=== PATIENT | female | born 1995 | race Caucasian/White ===

== ENCOUNTER 2023-02-01 02:17 | Inpatient (IN) | payer SELFPAY ==
[~2023-02-01] VITALS: Ht 172.7 cm; Wt 88.6 kg
[2023-02-01] VITALS (20 sets, daily range): BP systolic 97–158; BP diastolic 53–100; PULSE 62–90; TEMP 97.8–98.6
--- NOTE | 2023-02-01 02:40 | NUR ---
0240 G2L0 38.2 WEEKS GEST TO LR3 WITH C/O SROM AT 0130 TONIGHT. STATES IS HAVING SOME MILD CONTRACTIONS. EFM ON. NO FLUID NOTED BEFORE SVE. AMNOITRACE UNCONCLUSIVE. SVE WITHOUT GEL 1/THICK/HIGH AND POSTERIOR. UNSURE OF PRESENTING PART. NO FLUID NOTED ON EXAM BUT LARGE AMOUNT OF THICK, WHITISH/FARR DISCHARGE. ADM ASSESSMENT COMPLETED. 0300 DR VELÁSQUEZ NOTIFIED. ORDER TO RECHECK IN ONE HOUR.
[2023-02-01] MEDS ORDERED: PRENATAL TABLET PO (03:10)
[2023-02-01] MEDS ORDERED: PROBIOTIC-PREB1 EACH PO (03:11)
--- NOTE | 2023-02-01 03:30 | NUR ---
[id number] UP AND AMB IN HALLWAY. PAD ON.
--- NOTE | 2023-02-01 03:55 | NUR ---
0355 RETURNED TO BED. EFM ON. STATES MILD CTXS FELT OCC. LEAKING MORE FLUID. PAD WET. SVE 12/04/HIGH WITH BREECH PRESENTATION FELT. NOW LEAKING CL FLUID. DR VELÁSQUEZ ON UNIT AND AWARE OF SVE. WILL BE IN TO EVALUATE.
--- NOTE | 2023-02-01 04:20 | NUR ---
1850 DR VELÁSQUEZ IN AND US DONE. BREECH PRESENTATION CONFIRMED. LEAKING LARGE AMOUNT CL/BLOODY SHOW FLUID NOW. C/SECT DISCUSSED. 0500 ADM IN PT. IV FLUIDS STARTED. PERMITS SIGNED. C/SECT SCHEDULED FOR 629
[2023-02-01 05:30] LABS: BASO # 0.1 K/mm3 (0.0-0.2); BASO % 0.6 % (0.0-2.0); EOS # 0.1 K/mm3 (0.0-0.7); GRAN # 9.4 K/mm3 (1.4-6.5); GRAN % 74.3 % (42.2-75.2); HEMOGLOBIN 13.7 g/dl (12.5-16.0); LYMPH # 2.3 K/mm3 (1.2-3.4); LYMPH % 18.1 % (20.0-51.0); MEAN CELL VOLUME 94 fl (80.0-100.0); MEAN CORPUSCULAR HEMOGLOBIN 34 pg (27-31); MEAN CORPUSCULAR HGB CONC 36 g/dl (33.0-37.0); MEAN PLATELET VOLUME 12.1 fl (7.4-10.4); MONO # 0.7 K/mm3 (0.1-0.6); MONO % 5.2 % (1.7-9.3); PLATELET COUNT 217 K/mm3 (130-400); RED BLOOD COUNT 4.05 M/mm3 (4.10-5.30); REDCELL DISTRIBUTION WIDTH-CV 12.1 % (11.5-14.5)
--- NOTE | 2023-02-01 05:50 | NUR ---
0550 UP TO BR TO VOID. RETURNED TO BED. VISITS WITH ON PHONE AND WAITING FOR C/SCET.
[2023-02-02 04:19] VITALS: BP 117/71; PULSE 65; TEMP 98.3
[2023-02-02 07:40] VITALS: BP 123/75; PULSE 65; TEMP 97.5
[2023-02-02 16:00] VITALS: BP 110/70; PULSE 68; TEMP 97.3
[2023-02-02 21:30] VITALS: BP 121/61; PULSE 72; TEMP 97.7
[2023-02-03 07:30] VITALS: BP 117/80; PULSE 65; TEMP 97.3
[2023-02-03] MEDS ORDERED: ROXICODONE 55 MG/TAB PO (08:20)
[2023-02-03] MEDS ORDERED: MOTRIN 800800 MG/TAB PO (08:20)
--- NOTE | 2023-02-03 09:10 | NUR ---
Initial visit; Mom and Grandma thanked Triage Register Nurse for offering congratulations and God's blessings for the of their baby girl. Triage Register Nurse thanked family for choosing [facility] and letting Triage Register Nurse know that their little girl will be blessed in their "[facility]."
[2023-02-04 18:21] LABS: RUBEOLA (MEASLES) IGM ANTIBODY <1:10 (<1:10)
== END 2023-02-03 10:35 | disposition home or self-care (01) | DRG 788 ==
LOC: LDRO 02:17 → LDR 04:46 → OB 17:10
PROVIDERS: ADMIT Obstetrics & Gynecology
PROC: 10D00Z1 Extraction of Products of Conception, Low, Open Approach (ICD-10-PCS; principal; 2023-02-01)
DX: O32.1XX0 Maternal care for breech presentation, not applicable or unspecified (principal); Z37.0 Single live birth; O69.81X0 Labor and delivery complicated by cord around neck, without compression, not applicable or unspecified; Z3A.38 38 weeks gestation of pregnancy; Z86.14 Personal history of Methicillin resistant Staphylococcus aureus infection
CPT/HCPCS: J0690; J1885; J2370; J2405; J2590; J2765; J7120